=== PATIENT | male | born 1995 | race American Indian/Alaskan Native ===

== ENCOUNTER 2019-08-11 10:22 | Emergency (ER) | payer BC ==
[2019-08-11] MEDS ORDERED: ACETAMINOPHEN W/CODEINE 300-30 MG TAB PO ONE (14:10)
[2019-08-11] MEDS ORDERED: TETANUS,DIPH,PERTUSS(ACELL) VACCINE 0.5 ML SYRINGE IM ONE (14:11)
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
--- NOTE | 2019-08-11 15:21 | Cat Scan Report ---
CT head/brain wo con INDICATION / CLINICAL INFORMATION: 23 years Male; headache w/ loc. TECHNIQUE: Routine CT head without contrast. All CT scans at this location are performed using CT dos e reduction for ALARA by means of automated exposure control. COMPARISON: None. FINDINGS: BRAIN / INTRACRANIAL CONTENTS: The brain demonstrate appropriate attenuation. The ventricular system is within normal limits in size and configuration. There is no clear CT evidence of acute intracrania l hemorrhage or significant mass effect. ORBITS: No significant abnormality of visualized orbits. SINUSES / MASTOIDS: No significant abnormality the visualized paranasal sinuses or mastoid air cells. CRANIOCERVICAL JUNCTION: No significant abnormality. ADDITIONAL FINDINGS: None. IMPRESSION: 1. There is no CT evidence of acute intracranial process. Signer Name: Ketan Diaz MD Signed: 08/11/2019 3:17 PM Workstation Name: [id number]
[2019-08-11 16:18] VITALS: BP 103/60
== END 2019-08-11 16:27 | disposition home or self-care (01) ==
LOC: ED 10:22
DX: S06.0X9A Concussion with loss of consciousness of unspecified duration, initial encounter (principal); H44.002 Unspecified purulent endophthalmitis, left eye; R51 Headache; F17.200 Nicotine dependence, unspecified, uncomplicated; Z79.899 Other long term (current) drug therapy; Y08.89XA Assault by other specified means, initial encounter; Y93.89 Activity, other specified; Y92.89 Other specified places as the place of occurrence of the external cause; Y99.8 Other external cause status
CPT/HCPCS: 70450; 90471; 90715